=== PATIENT | female | born 1980 | race Caucasian/White ===

== ENCOUNTER 2017-06-26 20:08 | Emergency (ER) | payer MEDICAID ==
--- NOTE | 2017-06-26 20:49 | EDM.PDOC ---
ED HPI GENERAL MEDICAL PROBLEM - General Chief Complaint: Respiratory Problem Stated Complaint: LEFT ARM PAIN Time Seen by Provider: 06/26/17 20:35 Source of Information: Reports: Patient, Family History Limitations: Reports: No Limitations - History of Present Illness INITIAL COMMENTS - FREE TEXT/NARRATIVE: Lisa comes to [facility] ED with a week long hx of coughing, generally nonproductive , without documented fever. Sxs appear to have aggravated a chronic pain disorder of the neck related to radiculopathy affecting the L upper back and radiating into the L shoulder and arm. She had decompressive surgery with a fusion at C6-7 about 6 mos ago, but there has been residual pain since. She has tried no cough meds. She is still smoking. Of interest is a PMH of Addisons Disease and Lupus. 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 ED ROS GENERAL - Review of Systems Review Of Systems: See Below Constitutional: Reports: Fever, Chills, Malaise, Weakness HEENT: Reports: No Symptoms Respiratory: Reports: Cough Cardiovascular: Reports: No Symptoms Endocrine: Reports: No Symptoms GI/Abdominal: Reports: No Symptoms : Reports: No Symptoms Musculoskeletal: Reports: Neck Pain, Shoulder Pain, Back Pain Skin: Reports: No Symptoms Neurological: Reports: Pre-Existing Deficit (radiculpathy affecting LUE) Psychiatric: Reports: No Symptoms Hematologic/Lymphatic: Reports: No Symptoms Immunologic: Reports: No Symptoms ED EXAM, GENERAL - Physical Exam Exam: See Below Exam Limited By: No Limitations General Appearance: Alert, WD/WN, No Apparent Distress Ears: Normal External Exam, Normal TMs Nose: Normal Inspection Throat/Mouth: Normal Inspection, Normal Lips, Normal Oropharynx, Normal Voice Head: Normocephalic Neck: Normal Inspection, Limited Range of Motion Respiratory/Chest: No Respiratory Distress, No Accessory Muscle Use, Chest Non- Tender, Rhonchi Cardiovascular: Normal Peripheral Pulses, Regular Rate, Rhythm Back Exam: Normal Inspection Extremities: Normal Inspection, Normal Range of Motion Neurological: Alert, Oriented, CN II-XII Intact, Normal Cognition, Normal Gait Psychiatric: Normal Affect, Anxious Skin Exam: Warm, Dry, Intact Lymphatic: No Adenopathy Course - Vital Signs Text/Narrative:: Following assessment at the [facility] ED, screening labwork noted mild elevation of WBC 11,700. The BMP noted K 3.2 meq/l. Lisa was administered Zithromax 500 mg po, and sent home with remaining Z-Abdirashid. I also administered 1 Percocet 5/325 tab for L upper back and arm pain for comfort. No prescription analgesics were dispensed. - Orders/Labs/Meds Orders: Active Orders 24 hr Category Date Time Status Azithromycin [Zithromax] Med 06/26/17 21:47 Once 500 mg PO ONETIME ONE Medication Orders Azithromycin (Zithromax) 500 mg PO ONETIME ONE Stop: 06/26/17 21:48 Labs: Laboratory Tests 06/26/17 06/26/17 Range/Units 21:12 21:12 WBC 11.7 (4.5-12.0) X10-3/uL RBC 4.72 (3.23-5.20) x10(6)uL Hgb 13.7 (11.5-15.5) g/dL Hct 40.2 (30.0-51.3) % MCV 85.0 (80-96) fL MCH 29.1 (27.7-33.6) pg MCHC 34.2 (32.2-35.4) g/dL RDW 12.9 (11.5-15.5) % Plt Count 252 (125-369) X10(3)uL MPV 9.3 (7.4-10.4) fL Neut % (Auto) 61.7 (46-82) % Lymph % (Auto) 29.1 (13-37) % [place] % (Auto) 5.1 (4-12) % Eos % (Auto) 1 (1.0-5.0) % Baso % (Auto) 3 H (0-2) % Neut # (Auto) 7.2 (1.6-8.3) # Lymph # (Auto) 3.4 (0.6-5.0) # [place] # (Auto) 0.6 (0.0-1.3) # Eos # (Auto) 0.1 (0.0-0.8) # Baso # (Auto) 0.4 H (0.0-0.2) # Sodium 138 (135-145) mmol/L Potassium 3.2 L (3.5-5.3) mmol/L Chloride 105 (100-110) mmol/L Carbon Dioxide 22 L (23-29) mmol/L BUN 10 (5-20) mg/dL Creatinine 0.5 L (0.6-1.3) mg/dL Est Cr Clr Drug Dosing TNP Estimated GFR (MDRD) > 60 (>60) BUN/Creatinine Ratio 20.0 (9-20) Glucose 102 (80-116) mg/dL Calcium 9.0 (8.6-10.2) mg/dL Meds: Medications Generic Name Dose Route Start Last Admin Trade Name Freq PRN Reason Stop Dose Admin Azithromycin 500 mg 06/26/17 21:47 Zithromax PO 06/26/17 21:48 ONETIME ONE Departure - Departure Time of Disposition: 21:50 Disposition: Home, Self-Care 01 Condition: Fair Clinical Impression: Bronchitis, Myalgia - Discharge Information Referrals: PCP,None [Primary Care Provider] - Forms: ED Department Discharge - Problem List & Annotations (1) Myalgia SNOMED Code(s): 75749527 Code(s): M79.1 - MYALGIA Status: Acute Current Visit: Yes Annotation/ Comment:: I administered 1 Percocet 5/325 tab for comfort. She will need to follow up with PCP or neurosurgery for further pain management. She may take NSAIDs in the interim. (2) Bronchitis SNOMED Code(s): 06405018 Code(s): J40 - BRONCHITIS, NOT SPECIFIED ACUTE OR CHRONIC Status: Acute Current Visit: Yes Annotation/Comment:: Lisa was sent home with remainder of Z Abdirashid taken as directed, advised to stop smoking, and encouraged hydration. - Problem List Review Problem List Initiated/Reviewed/Updated: Yes - My Orders Last 24 Hours: My Active Orders 06/26/17 21:47 Azithromycin [Zithromax] 500 mg PO ONETIME ONE - Assessment/Plan Last 24 Hours: My Active Orders 06/26/17 21:47 Azithromycin [Zithromax] 500 mg PO ONETIME ONE Plan: Follow up with PCP or Neurosurgery regarding pain management.
[2017-06-26] MEDS ORDERED: Azithromycin 500 MG Tab PO ONE (21:47)
[2017-06-26] MEDS ORDERED: Acetaminophen/oxyCODONE 325-5 MG Tab PO ONE (21:50)
[2017-06-26] MEDS ORDERED: Azithromycin 250 MG Tab PO ONE (21:54)
== END 2017-06-26 22:10 | disposition home or self-care (01) ==
LOC: FB.ED 20:08
DX: J40 Bronchitis, not specified as acute or chronic (principal); M79.1 Myalgia
CPT/HCPCS: 36415; 80048; 85025; A9270; 99283

== ENCOUNTER 2017-09-14 17:35 | Emergency (ER) | payer MEDICAID ==
[2017-09-14] MEDS ORDERED: Ibuprofen 800 MG Tab PO ONE (17:57)
--- NOTE | 2017-09-14 19:11 | EDM.PDOC ---
ED HPI GENERAL MEDICAL PROBLEM - General Chief Complaint: Upper Extremity Injury/Pain Stated Complaint: LEFT TOE INJURED Time Seen by Provider: 09/14/17 18:06 Source of Information: Reports: Patient History Limitations: Reports: No Limitations - History of Present Illness INITIAL COMMENTS - FREE TEXT/NARRATIVE: c/o toe pain pt struck toe against a box, pain at L 5th toe - Related Data Allergies Allergy/AdvReac Type Severity Reaction Status Date / Time amoxicillin [From Augmentin] Allergy Hives Verified 09/14/17 18:32 cephalexin [From Keflex] Allergy Hives Verified 09/14/17 18:32 clavulanic acid Allergy Hives Verified 09/14/17 18:32 [From Augmentin] erythromycin base Allergy Hives Verified 09/14/17 18:32 Home Meds: Home Meds Hydrocortisone [Hydrocortisone] 20 mg PO DAILY 06/27/17 [History] Omeprazole 20 mg PO BID 06/27/17 [History] Warfarin [Coumadin] 5 mg PO SUTUWETHSA 06/27/17 [History] Warfarin [Coumadin] 6 mg PO MOFR 06/27/17 [History] Past Medical History HEENT History: Reports: Impaired Vision Respiratory History: Reports: PE Gastrointestinal History: Reports: GERD 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: Musculoskeletal History: Reports: Other (See Below) (Lupus Erythematosis) Endocrine/Metabolic History: Reports: [place]'s Disease Immunologic History: Reports: Other (See Below) Other Immunologic History: Lupus - Infectious Disease History Infectious Disease History: Reports: Chicken Pox - Past Surgical History HEENT Surgical History: Reports: None Respiratory Surgical History: Reports: None GI Surgical History: Reports: Appendectomy, Cholecystectomy, Other (See Below) Other GI Surgeries/Procedures: 2 exploratory laprascopic surgeries Female Surgical History: Reports: Section, Hysterectomy, Tubal Ligation Social & Family History - Family History Family Medical History: Noncontributory - Tobacco Use Smoking Status *Q: Current Every Day Smoker Years of Tobacco use: 30 Packs/Tins Daily: 0.5 - Caffeine Use Caffeine Use: Reports: Soda - Recreational Drug Use Recreational Drug Use: No Review of Systems - Review of Systems Review Of Systems: See Below Constitutional: Reports: No Symptoms Eyes: Reports: No Symptoms Ears: Reports: No Symptoms Nose: Reports: No Symptoms Mouth/Throat: Reports: No Symptoms Respiratory: Reports: No Symptoms Cardiovascular: Reports: No Symptoms GI/Abdominal: Reports: No Symptoms Genitourinary: Reports: No Symptoms Musculoskeletal: Reports: Foot Pain Skin: Reports: No Symptoms Neurological: Reports: No Symptoms Psychiatric: Reports: No Symptoms ED EXAM, GENERAL - Physical Exam Exam: See Below Exam Limited By: No Limitations General Appearance: Alert, WD/WN, No Apparent Distress Extremities: Other (ecchymosis and slight swell at base of L 5th toe, MTs NT, XR with a transverse fx at the base of the 5th proximal phalange) Course - Orders/Labs/Meds Orders: Active Orders 24 hr Category Date Time Status Toes Fifth Digit Lt T4 [CR] Stat Exams 09/14/17 17:58 Ordered Meds: Medications Discontinued Medications Generic Name Dose Route Start Last Admin Trade Name Jessy PRN Reason Stop Dose Admin Ibuprofen 800 mg 09/14/17 17:57 09/14/17 18:05 Motrin PO 09/14/17 17:58 800 mg ONETIME ONE Administration - Re-Assessments/Exams Free Text/Narrative Re-Assessment/Exam: 09/14/17 19:07 works at [employer], has 7h work tomorrow and then off the next day, only person working, has to walk to [employer] and clean as well operate till, advised to not work for 48h, will get her a cast shoe, pt reasonable prefers not to wale tape the toes Departure - Departure Time of Disposition: 19:08 Disposition: Home, Self-Care 01 Condition: Good Clinical Impression: Fracture of toe of left foot - Discharge Information Instructions: Toe Fracture Referrals: PCP,None [Primary Care Provider] - Additional Instructions: For pain and inflammation, take ibuprofen 200 mg 4 tabs and acetaminophen 500 mg 2 tabs 4 times a day for 7 days, longer if needed. Use cast shoe when out of bed for next 2 weeks, longer if needed. No work for 2 days. See your doctor next week. Limit walking and standing. Call your Physician or Return to Emergency Department if: * Your condition worsens in any way. * You develop fever greater than 100.4. * You have vomitting that does not stop with medications. * You have pain that is not controlled with medications. - My Orders Last 24 Hours: My Active Orders 09/14/17 17:58 Toes Fifth Digit Lt T4 [CR] Stat - Assessment/Plan Last 24 Hours: My Active Orders 09/14/17 17:58 Toes Fifth Digit Lt T4 [CR] Stat
--- NOTE | 2017-09-15 13:55 | CR ---
INDICATION: Pain in left 5th toe, hit against box. LEFT FIFTH TOE: Three views of the left fifth toe revealed an oblique fracture through the proximal metaphysis, extending slightly into the shaft of the proximal phalanx of the fifth toe, in satisfactory position and alignment - no significant deformity. No other bone or joint abnormality was seen. IMPRESSION: Fifth toe fracture in satisfactory position and alignment. MTDD
== END 2017-09-14 19:21 | disposition home or self-care (01) ==
LOC: FB.ED 17:35
DX: S92.512A Displaced fracture of proximal phalanx of left lesser toe(s), initial encounter for closed fracture (principal); Z88.1 Allergy status to other antibiotic agents; Z79.01 Long term (current) use of anticoagulants; K21.9 Gastro-esophageal reflux disease without esophagitis; W22.8XXA Striking against or struck by other objects, initial encounter
CPT/HCPCS: 73660; 99283; A9270

== ENCOUNTER 2017-10-19 06:53 | Day surgery (SDC) | payer MEDICAID ==
[2017-10-19] MEDS ORDERED: Lactated Ringers 1,000 ML IV SCH (07:15)
[2017-10-19] MEDS ORDERED: Midazolam 1 MG/ML 2 ML SDV IV ONE (08:45)
[2017-10-19] MEDS ORDERED: Propofol 200 MG/20 ML SDV IV ONE (08:45)
--- NOTE | 2017-10-19 09:24 | PCM.OPNOTE ---
- General Post-Op/Procedure Note Date of Surgery/Procedure: 10/19/17 Operative Procedure(s): c scope Findings: left sided abd pain, bleeding per rectum Pre Op Diagnosis: left sided abd pain. bleeding per rectum Post-Op Diagnosis: internal hemorrhoids Anesthesia Technique: MAC Primary Surgeon: James Cervantes Anesthesia Provider: Dionne Walker Pathology: none Complications: None Condition: Good Free Text/Narrative:: see dictation
[2017-10-19] MEDS ORDERED: traMADol 50 MG Tab PO PRN (09:57)
--- NOTE | 2017-10-19 14:09 | OR ---
DATE OF OPERATION: 10/19/2017 SURGEON: James Cervantes MD PROCEDURE PERFORMED: Colonoscopy. PREOPERATIVE DIAGNOSES: Left-sided abdominal pain, heme-positive stools. POSTOPERATIVE DIAGNOSIS: Internal hemorrhoids. INDICATIONS FOR PROCEDURE: This is a 37-year-old white female who has had multiple abdominal operations. She has a history of left-sided abdominal pain and has also noted some bright red blood per rectum. As a result of this, she was offered and accepted a colonoscopy. DESCRIPTION OF THE OPERATION: After an excellent IV sedation was administered, the digital rectal exam was performed. No marked abnormality was noted. Flexible colonoscope was inserted and advanced without difficulty to the cecum. The prep was excellent. The following findings were noted: Ascending colon, unremarkable. Transverse colon, unremarkable. Descending colon, unremarkable. Sigmoid and rectum unremarkable. Retroflexing the scope, there was some evidence of some internal hemorrhoids; this appears to be the cause of her bleeding. The colon was deflated, scope was removed, patient tolerated the procedure well, and was taken to recovery room in good condition. /[id number] 1400 /USMAN
== END 2017-10-19 10:45 | disposition home or self-care (01) ==
LOC: FB.SDS 06:53
PROVIDERS: ATTEND Surgery
DX: K64.8 Other hemorrhoids (principal); E66.9 Obesity, unspecified; E11.9 Type 2 diabetes mellitus without complications; J44.9 Chronic obstructive pulmonary disease, unspecified; I10 Essential (primary) hypertension; F32.9 Major depressive disorder, single episode, unspecified; E78.5 Hyperlipidemia, unspecified; F41.9 Anxiety disorder, unspecified; G47.30 Sleep apnea, unspecified; K21.9 Gastro-esophageal reflux disease without esophagitis; D68.62 Lupus anticoagulant syndrome; F17.210 Nicotine dependence, cigarettes, uncomplicated; Z68.36 Body mass index [BMI] 36.0-36.9, adult; Z79.899 Other long term (current) drug therapy; Z88.1 Allergy status to other antibiotic agents; Z79.01 Long term (current) use of anticoagulants; Z86.711 Personal history of pulmonary embolism; Z90.49 Acquired absence of other specified parts of digestive tract; Z98.890 Other specified postprocedural states; Z90.710 Acquired absence of both cervix and uterus; Z90.89 Acquired absence of other organs; Z98.51 Tubal ligation status
CPT/HCPCS: 00811-QZ; A9270-GY; J2250; J2704; J7120

== ENCOUNTER 2017-12-04 16:17 | Emergency (ER) | payer MEDICAID, OTHER ==
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
== END 2017-12-04 17:01 | disposition home or self-care (01) ==
LOC: FB.ED 16:17
DX: S46.912A Strain of unspecified muscle, fascia and tendon at shoulder and upper arm level, left arm, initial encounter (principal); S46.911A Strain of unspecified muscle, fascia and tendon at shoulder and upper arm level, right arm, initial encounter; S56.911A Strain of unspecified muscles, fascia and tendons at forearm level, right arm, initial encounter; S56.912A Strain of unspecified muscles, fascia and tendons at forearm level, left arm, initial encounter; E78.00 Pure hypercholesterolemia, unspecified; I10 Essential (primary) hypertension; J44.9 Chronic obstructive pulmonary disease, unspecified; K21.9 Gastro-esophageal reflux disease without esophagitis; F41.9 Anxiety disorder, unspecified; F32.9 Major depressive disorder, single episode, unspecified; F17.210 Nicotine dependence, cigarettes, uncomplicated; E11.9 Type 2 diabetes mellitus without complications; E66.9 Obesity, unspecified; Z90.49 Acquired absence of other specified parts of digestive tract; Z88.1 Allergy status to other antibiotic agents; Z88.8 Allergy status to other drugs, medicaments and biological substances; Z79.01 Long term (current) use of anticoagulants; Z79.899 Other long term (current) drug therapy; V47.5XXA Car driver injured in collision with fixed or stationary object in traffic accident, initial encounter; Y92.410 Unspecified street and highway as the place of occurrence of the external cause; Z68.37 Body mass index [BMI] 37.0-37.9, adult
CPT/HCPCS: 99283